=== PATIENT | female | born 2000 | race Caucasian/White ===

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

== ENCOUNTER 2021-09-29 17:22 | Emergency (ER) | payer SELFPAY ==
[2021-09-29 17:46] VITALS: BP 106/69; PULSE 96; TEMP 98.4; BMI 21.2
[2021-09-29] MEDS ORDERED: DOXYCYCLINE HYCLATE 100 MG CAPSULE PO ONE ×2 (20:14→20:30)
[2021-09-29] MEDS ORDERED: HIV POST EXPOSURE PROPHYLAXIS KIT PO ONE (20:29)
[2021-09-29] MEDS ORDERED: LIDOCAINE HCL 1% PRESERVATIVE FREE - 30ML VIAL INF ONE (20:30)
[2021-09-29] MEDS ORDERED: LIDOCAINE HCL 1%, 10 MG/ML (20ML VIAL) ONE (20:31)
[2021-09-29 21:21] LABS: SGOT/AST 22 U/L (15-37); SGPT/ALT 21 U/L (13-61)
[2021-09-29 21:45] LABS: SYPHILIS W/ RPR CONF NON-REACTIVE (NONREACTIVE)
[2021-09-29 22:14] LABS: HIV INTERPRETATION NEGATIVE (NEGATIVE)
== END 2021-09-29 22:55 | disposition home or self-care (01) ==
LOC: JERFT 17:22 → JER 17:22
DX: Z20.2 Contact with and (suspected) exposure to infections with a predominantly sexual mode of transmission (principal)
CPT/HCPCS: 36415; 84450; 84460; 84703; 86704; 86780; 86803; 87070; 87205; 87340; 87389; 87517; 99284-25

== ENCOUNTER 2022-05-30 15:20 | Emergency (ER) | payer OTHER ==
[2022-05-30 15:36] VITALS: BP 127/69; PULSE 107; RESP 16; TEMP 98; BMI 49.9
[2022-05-30] MEDS ORDERED: LIDOCAINE HCL 1%, 10 MG/ML (20ML VIAL) ONE (16:06)
[2022-05-30 17:03] LABS: PH,URINE 7.5 (5.0-8.0); URINE APPEARANCE CLEAR; URINE BILIRUBIN NEGATIVE (NEGATIVE); URINE COLOR YELLOW; URINE GLUCOSE (UA) NEGATIVE (NEGATIVE); URINE KETONE NEGATIVE (NEGATIVE); URINE LEUK ESTERASE NEGATIVE (NEGATIVE); URINE NITRITE NEGATIVE (NEGATIVE); URINE PROTEIN NEGATIVE (NEGATIVE); URINE UROBILINOGEN 0.2 mg/dL (0.2-1.0)
[2022-05-30 17:06] LABS: HCG,QUALITATIVE URINE Negative
[2022-05-30 19:32] LABS: SYPHILIS W/ RPR CONF NON-REACTIVE (NONREACTIVE)
[2022-05-30 19:54] LABS: ALBUMIN 3.8 g/dl (3.4-5.0); BLOOD UREA NITROGEN 9.3 mg/dL (7-18)
[2022-05-30 19:57] LABS: CREATININE 0.7 mg/dL (0.55-1.3)
[2022-05-30 19:59] LABS: BILIRUBIN,TOTAL 0.3 mg/dL (0.2-1); TOT PROT 6.8 g/dl (6.4-8.2)
[2022-05-30 20:34] LABS: HEPATITIS B SURFACE AG MATERN NON-REACTIVE (NONREACTIVE)
[2022-05-30 20:56] LABS: HIV INTERPRETATION NEGATIVE (NEGATIVE)
== END 2022-05-30 17:48 | disposition home or self-care (01) ==
LOC: JERFT 15:20 → JER 15:20 → JERFT 17:48
PROC: 3E023GC Introduction of Other Therapeutic Substance into Muscle, Percutaneous Approach (ICD-10-PCS; principal; 2022-05-30)
DX: N76.0 Acute vaginitis (principal); Z20.2 Contact with and (suspected) exposure to infections with a predominantly sexual mode of transmission
CPT/HCPCS: 36415; 80053; 81003; 82977; 84703; 86704; 86780; 86803; 87086; 87340; 87389; 87491; 87517; 87536; 87591; 96372; 99284-25

== ENCOUNTER 2022-07-03 17:53 | Emergency (ER) | payer OTHER ==
[2022-07-03 18:23] VITALS: BP 112/68; PULSE 83; RESP 16; TEMP 97.9; BMI 22.6
[2022-07-03 21:24] LABS: EPI CELLS >36 /uL (0-25.1); HYALINE CASTS 4 /uL (0-3.1); PH,URINE 7.5 (5.0-8.0); URINE APPEARANCE CLOUDY; URINE BACTERIA 5002 /uL (0-1359); URINE BILIRUBIN NEGATIVE (NEGATIVE); URINE COLOR YELLOW; URINE GLUCOSE (UA) NEGATIVE (NEGATIVE); URINE KETONE NEGATIVE (NEGATIVE); URINE LEUK ESTERASE 3+ (NEGATIVE); URINE NITRITE NEGATIVE (NEGATIVE); URINE PROTEIN TRACE (NEGATIVE); URINE RBC 14 /uL (0-23.9); URINE WBC 466 /uL (0-25.8)
== END 2022-07-03 21:13 | disposition home or self-care (01) ==
LOC: JERFT 17:53 → JER 17:53 → JERFT 21:13
DX: Z20.2 Contact with and (suspected) exposure to infections with a predominantly sexual mode of transmission (principal)
CPT/HCPCS: 36415; 81003; 87077; 87086; 87491; 87591; 99283-25